=== PATIENT | female | born 1975 | race American Indian/Alaskan Native ===

== ENCOUNTER 2016-09-29 14:06 | Outpatient (CLI) | payer OTHER ==
--- NOTE | 2016-09-29 15:52 | Magnetic Resonance Report ---
MRI of the brain with and without contrast. History: Ataxia/multiple falls. Procedure: Routine brain protocol with and without contrast. Findings: The posterior fossa is normal. The ventricles are normal in size and contour. There are no masses or extra-axial collections. The la-white matter junction is normal. There is no restricted diffusion. The pituitary gland is normal. There is extensive abnormal signal occupying the entire right maxillary sinus with mucoperiosteal thickening/inflammation in the right ethmoid and bilateral frontal sinuses. There scattered areas of hyperintense T2 signal in the right mastoid air cells. After contrast administration, there are no abnormal areas of parenchymal enhancement. Impression: 1. No intracranial abnormalities. 2. Severe right maxillary sinusitis with additional sinusitis in the right ethmoid and bilateral frontal sinuses. There is evidence of mild right mastoiditis.
== END 2016-09-29 14:07 | disposition home or self-care (01) ==
LOC: MRI 14:06
PROVIDERS: ATTEND Internal Medicine
DX: J32.0 Chronic maxillary sinusitis (principal); H70.91 Unspecified mastoiditis, right ear; J32.2 Chronic ethmoidal sinusitis; J32.1 Chronic frontal sinusitis; Z91.81 History of falling
CPT/HCPCS: 70553; A9577

== ENCOUNTER 2016-11-10 13:27 | Outpatient (CLI) | payer OTHER ==
--- NOTE | 2016-11-10 15:16 | Ultrasound Report ---
ULTRASOUND RENAL BILATERAL HISTORY: Chronic renal disease. TECHNIQUE: transabdominal ultrasound with color Doppler interrogation. FINDINGS: The right kidney measures 10.5cm. Right renal cortex: 1.8cm. The left kidney measures 10.4cm. Left renal cortex: 1.5cm. The kidneys are normal size, contour and position. There is increased renal parenchymal echotexture bilaterally. Corticomedullary differentiation is preserved. No evidence for cystic disease, mass, hydronephrosis or perinephric fluid. The views of the bladder and the region of the ureters appear normal. IMPRESSION: Renal parenchymal disease.
== END 2016-11-10 13:28 | disposition home or self-care (01) ==
LOC: US 13:27
PROVIDERS: ATTEND Internal Medicine Nephrology
DX: N18.3 Chronic kidney disease, stage 3 (moderate) (principal)
CPT/HCPCS: 76770

== ENCOUNTER 2017-01-24 14:48 | Outpatient (CLI) | payer OTHER ==
[2017-01-24 15:54] LABS: Basophils % (Auto) 1.5 % (0.0-1.8); Eosinophils % (Auto) 2.1 % (0.0-4.3); Hematocrit 20.1 % (30.3-42.9); Hemoglobin 6.3 gm/dl (10.1-14.3); Mean Corpuscular HGB Conc 31 % (30-34); Mean Corpuscular Volume 76 fl (79-97); Platelet Count 252 K/mm3 (140-440); Red Blood Count 2.65 M/mm3 (3.65-5.03); Red Cell Distribution Width 16.8 % (13.2-15.2); White Blood Count 5.5 K/mm3 (4.5-11.0)
[2017-01-24 16:00] LABS: Mean Corpuscular Hemoglobin 24 pg (28-32)
== END 2017-01-24 14:49 | disposition home or self-care (01) ==
LOC: LAB 14:48
PROVIDERS: ATTEND Internal Medicine
DX: E11.65 Type 2 diabetes mellitus with hyperglycemia (principal)
CPT/HCPCS: 36415; 85025

== ENCOUNTER 2017-02-24 16:10 | Inpatient (IN) | payer OTHER ==
[2017-02-24 17:51] LABS: Basophils % (Auto) 1.4 % (0.0-1.8); Eosinophils % (Auto) 3.1 % (0.0-4.3); Hematocrit 21.7 % (30.3-42.9); Hemoglobin 6.9 gm/dl (10.1-14.3); Mean Corpuscular HGB Conc 32 % (30-34); Mean Corpuscular Volume 72 fl (79-97); Platelet Count 288 K/mm3 (140-440); Red Blood Count 3.01 M/mm3 (3.65-5.03); Red Cell Distribution Width 15.8 % (13.2-15.2); White Blood Count 6.5 K/mm3 (4.5-11.0)
[2017-02-24 17:52] LABS: Mean Corpuscular Hemoglobin 23 pg (28-32)
[2017-02-24 18:07] LABS: BUN/Creatinine Ratio 21.42; Calcium 8.8 mg/dL (8.4-10.2); Potassium 5.2 mmol/L (3.6-5.0)
[2017-02-24] MEDS ORDERED: NACL 0.9% 500 ML 500 ML IV ONE ×2 (23:12→23:36)
--- NOTE | 2017-02-24 23:36 | Emergency Department Report ---
- General Chief complaint: Recheck/Abnormal Lab/Rx Stated complaint: LOW HEMOGLOBIN Time Seen by Provider: 02/24/17 22:47 Source: patient Mode of arrival: Ambulatory Limitations: No Limitations - History of Present Illness Initial comments: 41-year-old female the past medical history diabetes, hypertension, anemia, autoimmune gastritis, chronic renal insufficiency, and B12 deficiency presents to the hospital complains of low hemoglobin. Patient was sent by Dr. Bailey her unix architect after abnormal CBC results. Hemoglobin 6.6 as outpatient today. Patient complains of ongoing fatigue and intermittent dizziness. No shortness of breath, vaginal bleeding, melena, hematochezia. Similar presentation one year ago requiring blood transfusion. Patient is not currently on iron or B12 pills. - Related Data Allergies Allergy/AdvReac Type Severity Reaction Status Date / Time No Known Allergies Allergy Unverified 09/29/16 14:06 ED Review of Systems ROS: Stated complaint: LOW HEMOGLOBIN Other details as noted in HPI Comment: All other systems reviewed and negative Other: Constitutional: No fevers chills Eyes: No eye pain visual changes ENT: No ear pain or throat pain Neck: Denies pain Respiratory: Denies cough wheezing shortness of breath Cardiovascular: Denies chest pain, palpitations GI: Denies abdominal pain, nausea, vomiting, diarrhea : Denies dysuria Musculoskeletal: Denies back pain Skin: Denies rash, lesions, erythema Neurologic: Denies headache, numbness Psychiatric: Denies suicidal ideation, hallucinations ED Past Medical Hx - Past Medical History Hx Hypertension: Yes Hx Diabetes: Yes Additional medical history: Anemia, auto immune gastritis - Surgical History Past Surgical History?: Yes Additional Surgical History: Thyroidectomy - Social History Smoking Status: Never Smoker Substance Use Type: None ED Physical Exam - General Limitations: No Limitations - Other Other exam information: General: No limitations, patient is alert in no acute distress Head exam: Atraumatic, normocephalic Eyes exam: Normal appearance, pupils equal reactive to light, extraocular movements intact ENT: Moist mucous membrane, normal oropharynx Neck exam: Normal inspection, full range of motion, no meningismus nontender Respiratory exam: Clear to auscultation bilateral, no wheezes, rales, crackles Cardiovascular: Normal rate and rhythm, normal heart sounds Abdomen: Soft, nondistended, and nontender, with normal bowel sounds, no rebound, or guarding Rectal: Guaiac-negative brown stool Extremity: Full range of motion normal inspection no deformity Back: Normal Inspection, full range of motion, no tenderness Neurologic: Alert, oriented x3, cranial nerves intact, no motor or sensory deficit Psychiatric: normal affect, normal mood Skin: Warm, dry, intact ED Course Vital Signs 02/24/17 02/24/17 02/24/17 16:41 22:27 22:30 Temperature 98.1 F Pulse Rate 82 77 77 Respiratory 16 15 10 L Rate Blood Pressure 99/65 162/66 O2 Sat by Pulse 100 Oximetry 02/24/17 22:43 Temperature Pulse Rate Respiratory 19 Rate Blood Pressure O2 Sat by Pulse Oximetry - Reevaluation(s) Reevaluation #1: 02/25/17 00:53 2 units PRBCs ordered and pending ED Medical Decision Making - Lab Data Result diagrams: 02/24/17 17:10 02/24/17 17:10 Lab Results 02/24/17 02/24/17 02/24/17 Range/Units 17:10 17:10 23:15 WBC 6.5 (4.5-11.0) K/mm3 RBC 3.01 L (3.65-5.03) M/mm3 Hgb 6.9 L (10.1-14.3) gm/dl Hct 21.7 L (30.3-42.9) % MCV 72 L (79-97) fl MCH 23 L (28-32) pg MCHC 32 (30-34) % RDW 15.8 H (13.2-15.2) % Plt Count 288 (140-440) K/mm3 Lymph % (Auto) 24.4 (13.4-35.0) % Hand % (Auto) 7.5 H (0.0-7.3) % Eos % (Auto) 3.1 (0.0-4.3) % Baso % (Auto) 1.4 (0.0-1.8) % Lymph # 1.6 (1.2-5.4) K/mm3 Hand # 0.5 (0.0-0.8) K/mm3 Eos # 0.2 (0.0-0.4) K/mm3 Baso # 0.1 (0.0-0.1) K/mm3 Seg Neutrophils % 63.6 (40.0-70.0) % Seg Neutrophils # 4.1 (1.8-7.7) K/mm3 Sodium 137 (137-145) mmol/L Potassium 5.2 H (3.6-5.0) mmol/L Chloride 100.0 (98-107) mmol/L Carbon Dioxide 22 (22-30) mmol/L Anion Gap 20 mmol/L BUN 30 H (7-17) mg/dL Creatinine 1.4 H (0.7-1.2) mg/dL Estimated GFR 50 ml/min BUN/Creatinine Ratio 21.42 % Glucose 257 H (65-100) mg/dL Calcium 8.8 (8.4-10.2) mg/dL Blood Type AB POSITIVE Antibody Screen Negative Crossmatch See Detail Urine pending - Medical Decision Making No signs of active bleeding at this time. Patient sent by PMD due to symptomatic anemia. 2 units of PRBCs ordered. Iron studies, folate, and B12 pending. - Differential Diagnosis iron deficiency, acute blood loss, chronic renal disease associated anemia Critical Care Time: No Critical care attestation.: If time is entered above; I have spent that time in minutes in the direct care of this critically ill patient, excluding procedure time. ED Disposition Clinical Impression: Symptomatic anemia, Autoimmune gastritis, Chronic renal insufficiency Disposition: OP ADMIT IP TO THIS HOSP Is pt being admited?: Yes Condition: Stable Time of Disposition: 23:36 (Dr landeros/hosp)
[2017-02-25] MEDS ORDERED: TYLENOL PO PRN (01:03)
[2017-02-25] MEDS ORDERED: DULCOLAX PR PRN (01:03)
[2017-02-25] MEDS ORDERED: MORPHINE IV PRN (01:03)
[2017-02-25] MEDS ORDERED: ZOFRAN IV PRN (01:03)
[2017-02-25] MEDS ORDERED: MILK OF MAGNESIA PO PRN (01:03)
--- NOTE | 2017-02-25 01:07 | History and Physical Report ---
History of Present Illness Date of examination: 02/25/17 Date of admission: Cerumen is present Chief complaint: Patient was asked to come in for blood sensation because hemoglobin was low History of present illness: Patient is 41-year-old with history of diabetes, hypertension, chronic kidney disease. She was sent in by division controller because outpatient labs showed low hemoglobin. She also complained of fatigue and dizziness. In ED, her hemoglobin was 6.9. PRBC transfusion has been ordered and she will be admitted to medical floor. She denies any chest pain or shortness of breath. Past History Past Medical History: diabetes, hypertension, renal failure Past Surgical History: thyroidectomy Social history: full code. denies: smoking, alcohol abuse Family history: diabetes, stroke Medications and Allergies Allergies Allergy/AdvReac Type Severity Reaction Status Date / Time No Known Allergies Allergy Unverified 09/29/16 14:06 Review of Systems All systems: negative (no fever, no headache, no cough, no vomiting. All other systems reviewed and are negative) Exam - Physical Exam Narrative exam: Gen appearance: Not in acute distress HEENT: Normocephalic atraumatic. Neck: Supple, no JVD, Lungs: clear to auscultation bilaterally, no crackles or wheezes Heart :S1 and S2 regular, no murmurs, rubs or gallop Abdomen: Soft, non tender, non distended, normal bowel sounds Extremities :no edema no clubbing or cyanosis Neuro: Awake, alert oriented 3, normal speech,no focal neurological signs - Constitutional Vitals: Temp Pulse Resp BP Pulse Ox 98.4 F 80 16 150/63 100 02/25/17 01:05 02/25/17 01:05 02/25/17 01:05 02/25/17 01:05 02/24/17 16:41 Results - Labs CBC & Chem 7: 02/24/17 17:10 02/24/17 17:10 Labs: Abnormal lab results 02/24/17 02/24/17 02/24/17 Range/Units 17:10 17:10 23:15 RBC 3.01 L (3.65-5.03) M/mm3 Hgb 6.9 L (10.1-14.3) gm/dl Hct 21.7 L (30.3-42.9) % MCV 72 L (79-97) fl MCH 23 L (28-32) pg RDW 15.8 H (13.2-15.2) % Rooks % (Auto) 7.5 H (0.0-7.3) % Potassium 5.2 H (3.6-5.0) mmol/L BUN 30 H (7-17) mg/dL Creatinine 1.4 H (0.7-1.2) mg/dL Glucose 257 H (65-100) mg/dL Crossmatch See Detail Assessment and Plan Symptomatic anemia. Admit to medical surgical floor. Hemoglobin 6.9. We'll transfuse 2 units PRBC. Get stool occult blood Chronic kidney disease. Cr 1.4. Consult her division controller, Dr. Bailey Hyperkalemia with potassium 5.2. Gave Kayexalate and recheck potassium Diabetes mellitus type 2. Fingerstick glucose before every meal and at bedtime Hypertension. BP uncontrolled. Start on amlodipine and hydralazine Full CODE STATUS
[2017-02-25] MEDS ORDERED: KIONEX PO ONE (01:09)
[2017-02-25 02:17] LABS: Total Iron Binding Capacity 467.6 mcg/dL (250-450)
[2017-02-25] MEDS ORDERED: APRESOLINE ONE (02:57)
[2017-02-25] MEDS ORDERED: APRESOLINE PO SCH (03:00)
[2017-02-25] MEDS: NORVASC PO SCH ×2 (03:06→09:36)
[2017-02-25] MEDS ORDERED: APRESOLINE PO ONE (04:42)
[2017-02-25] MEDS ORDERED: APRESOLINE IV ONE (04:51)
[2017-02-25] MEDS: APRESOLINE PO SCH ×2 (05:37→14:22)
[2017-02-25 07:19] LABS: Hematocrit 30.1 % (30.3-42.9); Hemoglobin 9.7 gm/dl (10.1-14.3); Mean Corpuscular HGB Conc 32 % (30-34); Mean Corpuscular Volume 79 fl (79-97); Platelet Count 238 K/mm3 (140-440); Red Blood Count 3.81 M/mm3 (3.65-5.03); White Blood Count 9.4 K/mm3 (4.5-11.0)
[2017-02-25 07:40] LABS: Anion Gap 18 mmol/L; BUN/Creatinine Ratio 25.45; Blood Urea Nitrogen 28 mg/dL (7-17); Calcium 8.6 mg/dL (8.4-10.2); Carbon Dioxide 21 mmol/L (22-30); Chloride 102.7 mmol/L (98-107); Glucose 285 mg/dL (65-100); Potassium 4.5 mmol/L (3.6-5.0); Sodium 137 mmol/L (137-145)
[2017-02-25 07:48] LABS: Mean Corpuscular Hemoglobin 26 pg (28-32); Red Cell Distribution Width 20.1 % (13.2-15.2)
--- NOTE | 2017-02-25 08:35 | Discharge Summary ---
Providers - Providers Date of Admission: 02/25/17 01:03 Date of discharge: 02/25/17 Attending physician: ARACELI SANDERSON Primary care physician: APPLICATION HELPER Hospitalization Reason for admission: anemia Condition: Stable Hospital course: Patient is 41-year-old with history of diabetes, hypertension, chronic kidney disease. She was sent in by french weaver because outpatient labs showed low hemoglobin. She also complained of fatigue and dizziness. In ED, her hemoglobin was 6.9. PRBC transfusion has been ordered and she was admitted to medical floor. She denied any chest pain or shortness of breath. Patient received 2 units of PRBCs. Patient showed no signs of active bleeding. Patient will follow-up with her french weaver and primary care physician as an outpatient. Etiology of anemia may be secondary to chronic kidney disease. Patient was also noted to have accelerated hypertension and treated with Norvasc and hydralazine. Patient has significant improvement in blood pressure. Patient will be discharged home with prescriptions. Dedicated discharge time 32 minutes. Disposition: DC-01 TO HOME OR SELFCARE Time spent for discharge: 32 - Discharge Diagnoses (1) Autoimmune gastritis Status: Acute Qualifiers: Gastritis bleeding: G (2) Chronic renal insufficiency Status: Acute Qualifiers: Chronic kidney disease stage: C (3) Symptomatic anemia Status: Acute (4) Accelerated hypertension Status: Acute Core Measure Documentation - Palliative Care Palliative Care/ Comfort Measures: Not Applicable - Core Measures Any of the following diagnoses?: none Exam - Constitutional Vitals: Temp Pulse Resp BP Pulse Ox 98.5 F 86 18 161/82 100 02/25/17 04:25 02/25/17 06:20 02/25/17 06:20 02/25/17 06:20 02/25/17 04:25 General appearance: Present: no acute distress, well-nourished - EENT Eyes: Present: PERRL ENT: hearing intact, clear oral mucosa - Neck Neck: Present: supple, normal ROM - Respiratory Respiratory effort: normal Respiratory: bilateral: CTA - Cardiovascular Heart Sounds: Present: S1 & S2. Absent: rub, click - Extremities Extremities: pulses symmetrical, No edema Peripheral Pulses: within normal limits - Abdominal General gastrointestinal: Present: soft, non-tender, non-distended, normal bowel sounds Female genitourinary: Present: normal - Integumentary Integumentary: Present: clear, warm, dry - Musculoskeletal Musculoskeletal: gait normal, strength equal bilaterally - Psychiatric Psychiatric: appropriate mood/affect, intact judgment & insight - Neurologic Neurologic: CNII-XII intact, moves all extremities Plan Activity: no restrictions Weight Bearing Status: Full Weight Bearing Diet: regular Follow up with: PRIMARY CARE, [Primary Care Provider] - 7 Days PROSPER WATSON MD [Staff Physician] - 7 Days Prescriptions: amLODIPine [Norvasc] 5 mg PO QDAY #30 tablet hydrALAZINE [Apresoline TAB] 50 mg PO Q8H #90 tablet
--- NOTE | 2017-02-25 13:47 | Consultation ---
History of Present Illness - Reason for Consult Consult date: 02/25/17 acute renal failure, chronic renal failure Requesting physician: GREGORY CLARKE - History of Present Illness This is 41 yo AAF with history of diabetes, hypertension, autoimmune gastritis, chronic iron deficiency anemia, chronic kidney disease stage 2, who is being followed by Dr Bailey, and was sent by him after recent blood work showed evidence of significant anemia with Hb <7. She also complained of fatigue and dizziness. In ED, her hemoglobin was 6.9. PRBC transfusion has been ordered and was admitted to medical floor. BUN/Cr was elevated at 30/1.4mg/dl, renal consult is requested for management of GAGAN on CKD. Pt denies fever, chills, nausea vomiting, BRBPR, melena, chest pain, shortness of breath, dysuria. denies recent NSAIDs use, or IV contrast exposure. Past History Past Medical History: diabetes, hypertension, renal failure Past Surgical History: thyroidectomy Social history: full code. denies: smoking, alcohol abuse Family history: diabetes, stroke Medications and Allergies Allergies Allergy/AdvReac Type Severity Reaction Status Date / Time No Known Allergies Allergy Unverified 09/29/16 14:06 Home Medications Medication Instructions Recorded Confirmed Last Taken Type amLODIPine [Norvasc] 5 mg PO QDAY #30 tablet 02/25/17 Unknown Rx hydrALAZINE [Apresoline TAB] 50 mg PO Q8H #90 tablet 02/25/17 Unknown Rx Active Meds: Active Medications Acetaminophen (Tylenol) 650 mg PO Q4H PRN PRN Reason: Pain MILD(1-3)/Fever >100.5/YEAGER Amlodipine Besylate (Norvasc) 5 mg PO QDAY [facility] Last Admin: 02/25/17 09:36 Dose: 5 mg Bisacodyl (Dulcolax) 10 mg FL QDAY PRN PRN Reason: Constipation unrelieved by MOM Heparin Sodium (Porcine) (Heparin) 5,000 unit SUB-Q Q8HR [facility] Hydralazine HCl (Apresoline) 50 mg PO Q8H [facility] Last Admin: 02/25/17 05:37 Dose: Not Given Magnesium Hydroxide (Milk Of Magnesia) 30 ml PO Q4H PRN PRN Reason: Constipation Morphine Sulfate (Morphine) 2 mg IV Q4H PRN PRN Reason: Pain, Moderate (4-6) Ondansetron HCl (Zofran) 4 mg IV Q6H PRN PRN Reason: nausea or vomiting Review of Systems Constitutional: fatigue, weakness Hematologic/Lymphatic: other (chronic anemia ) Exam - Vital Signs Vital signs: Vital Signs Temp Pulse Resp BP Pulse Ox 98.1 F 82 16 99/65 100 02/24/17 16:41 02/24/17 16:41 02/24/17 16:41 02/24/17 16:41 02/24/17 16:41 - General Appearance General appearance: well-nourished, appears stated age EENT: ATNC, PERRL, mucous membranes moist Neck: Present: neck supple Respiratory: Clear to Ascultation Heart: regular, S1S2 Gastrointestinal: Present: normoactive bowel sounds Integumentary: no rash, other (no edema ) Neurologic: no focal deficit, alert and oriented x3, strength 5/5, CN 3-12 intact Psychiatric: mood/affect appropriate, cooperative Results - Lab Results 02/25/17 07:04 02/25/17 07:04 Most recent lab results Calcium 8.6 mg/dL (8.4-10.2) 02/25/17 07:04 Laboratory Tests 02/24/17 02/24/17 02/24/17 23:33 23:33 23:33 Iron 17 L TIBC 467.60 H % Saturation 3.64 Transferrin 334 Vitamin B12 733.3 Folate 14.43 Assessment and Plan - Patient Problems (1) Symptomatic anemia Current Visit: Yes Status: Acute Plan to address problem: Hb improved to 9.7. after 2PRBC transfusion. (2) Acute kidney injury Current Visit: Yes Status: Acute Plan to address problem: likely due to pre-renal azotemia in the setting of acute symptomatic anemia. Renal function improved promptly to baseline after blood transfusion. Stable for discharge from renal stand point cont supportive care for GAGAN/CKD avoid nephrotoxins, NSAIDs, IV contrast (3) Hypertensive chronic kidney disease with stage 1 through stage 4 chronic kidney disease, or unspecified chronic kidney disease Current Visit: Yes Status: Acute Plan to address problem: resume home BP regimen. Will monitor BP and adjust meds accordingly (4) Chronic kidney disease, stage III (moderate) Current Visit: Yes Status: Acute Plan to address problem: renal function back to baseline, f/u with Dr Bailey in 1-2 weeks (5) Autoimmune gastritis Current Visit: Yes Status: Acute Qualifiers: Gastritis bleeding: G Plan to address problem: f/u with GI/hematology
[2017-02-25] MEDS ORDERED: HEPARIN SUB-Q SCH (14:00)
[2017-02-25 14:22] VITALS: BP 172/80
== END 2017-02-25 14:45 | disposition home or self-care (01) | DRG 683 ==
LOC: ED 16:10 → 3A 02-25 01:03
PROVIDERS: ADMIT Internal Medicine; ATTEND Hospitalist
PROC: 30233N1 Transfusion of Nonautologous Red Blood Cells into Peripheral Vein, Percutaneous Approach (ICD-10-PCS; principal; 2017-02-25)
DX: I12.9 Hypertensive chronic kidney disease with stage 1 through stage 4 chronic kidney disease, or unspecified chronic kidney disease (principal); N17.9 Acute kidney failure, unspecified; N18.3 Chronic kidney disease, stage 3 (moderate); E11.9 Type 2 diabetes mellitus without complications; E53.8 Deficiency of other specified B group vitamins; E89.0 Postprocedural hypothyroidism; E87.5 Hyperkalemia; K29.60 Other gastritis without bleeding; D63.1 Anemia in chronic kidney disease; Z83.3 Family history of diabetes mellitus; Z82.3 Family history of stroke
CPT/HCPCS: 36415; 80048; 81025; 82271; 82607; 82747; 83550; 85025; 85027; 86850; 86900; 86901; 86920; 96360; 96361; J0360; J7040; P9016

== ENCOUNTER 2018-03-02 10:15 | Outpatient (CLI) | payer BC ==
[2018-03-02] MEDS ORDERED: XYLOCAINE TOPICAL 4% TP ONE ×2 (11:03→12:02)
== END 2018-03-02 10:16 | disposition home or self-care (01) ==
LOC: WOUND 10:15
PROVIDERS: ATTEND Surgery
DX: T87.89 Other complications of amputation stump (principal); E11.621 Type 2 diabetes mellitus with foot ulcer; L97.514 Non-pressure chronic ulcer of other part of right foot with necrosis of bone; I10 Essential (primary) hypertension; Y83.5 Amputation of limb(s) as the cause of abnormal reaction of the patient, or of later complication, without mention of misadventure at the time of the procedure
CPT/HCPCS: 99215; G0463

== ENCOUNTER 2018-03-09 08:16 | Outpatient (CLI) | payer BC ==
[2018-03-09] MEDS ORDERED: XYLOCAINE TOPICAL 4% TP ONE ×2 (08:24→09:03)
== END 2018-03-09 08:17 | disposition home or self-care (01) ==
LOC: WOUND 08:16
PROVIDERS: ATTEND Surgery
DX: T87.89 Other complications of amputation stump (principal); E11.621 Type 2 diabetes mellitus with foot ulcer; L97.514 Non-pressure chronic ulcer of other part of right foot with necrosis of bone; L97.521 Non-pressure chronic ulcer of other part of left foot limited to breakdown of skin; I10 Essential (primary) hypertension; Y83.5 Amputation of limb(s) as the cause of abnormal reaction of the patient, or of later complication, without mention of misadventure at the time of the procedure
CPT/HCPCS: 99213; 99214; G0463

== ENCOUNTER 2018-03-13 10:18 | Outpatient (CLI) | payer BC ==
[2018-03-13] MEDS ORDERED: DAKIN'S FULL STRENGTH ONE (11:50)
[2018-03-13] MEDS ORDERED: DAKIN'S FULL STRENGTH TP ONE (15:35)
== END 2018-03-13 10:19 | disposition home or self-care (01) ==
LOC: WOUND 10:18
PROVIDERS: ATTEND Surgery
DX: T87.89 Other complications of amputation stump (principal); E11.621 Type 2 diabetes mellitus with foot ulcer; L97.414 Non-pressure chronic ulcer of right heel and midfoot with necrosis of bone; L97.514 Non-pressure chronic ulcer of other part of right foot with necrosis of bone; L97.521 Non-pressure chronic ulcer of other part of left foot limited to breakdown of skin; E11.69 Type 2 diabetes mellitus with other specified complication; M86.671 Other chronic osteomyelitis, right ankle and foot; I10 Essential (primary) hypertension; Y83.5 Amputation of limb(s) as the cause of abnormal reaction of the patient, or of later complication, without mention of misadventure at the time of the procedure

== ENCOUNTER 2018-03-20 10:10 | Outpatient (CLI) | payer BC ==
[2018-03-20 10:58] LABS: Hematocrit 24.2 % (30.3-42.9); Hemoglobin 7.2 gm/dl (10.1-14.3); Mean Corpuscular HGB Conc 30 % (30-34); Mean Corpuscular Hemoglobin 27 pg (28-32); Mean Corpuscular Volume 90 fl (79-97); Platelet Count 474 K/mm3 (140-440); Red Blood Count 2.69 M/mm3 (3.65-5.03); Red Cell Distribution Width 15.6 % (13.2-15.2)
--- NOTE | 2018-03-20 11:07 | XRay Report ---
ROUTINE CHEST, TWO VIEWS: HISTORY: Preoperative evaluation. The trachea, heart, mediastinal contour, lung barton and bony thorax are unremarkable. IMPRESSION: Unremarkable chest x-ray.
[2018-03-20 11:14] LABS: Albumin 1.9 g/dL (3.9-5); Calcium 8.5 mg/dL (8.4-10.2)
[2018-03-20 13:37] LABS: Basophils % (Manual) 0 % (0.0-1.8); Eosinophils % (Manual) 0 % (0.0-4.3); Total Cells Counted 100
[2018-03-20 13:38] LABS: Anisocytosis Few; Crenated RBC Few; Platelet Estimate Consistent w Auto; Poikilocytosis Few
== END 2018-03-20 10:11 | disposition home or self-care (01) ==
LOC: LAB 10:10
PROVIDERS: ATTEND Surgery
DX: E61.1 Iron deficiency (principal); I12.9 Hypertensive chronic kidney disease with stage 1 through stage 4 chronic kidney disease, or unspecified chronic kidney disease; N18.3 Chronic kidney disease, stage 3 (moderate)
CPT/HCPCS: 36415; 71046; 80053; 85007; 85025

== ENCOUNTER 2018-03-28 08:35 | Outpatient (CLI) | payer BC ==
[2018-03-28] MEDS ORDERED: XYLOCAINE TOPICAL 4% TP ONE (08:47)
[2018-03-28] MEDS ORDERED: SILVER NITRATE TP ONE (09:15)
[2018-03-28] MEDS ORDERED: DAKIN'S FULL STRENGTH TP ONE (09:16)
== END 2018-03-28 08:36 | disposition home or self-care (01) ==
LOC: WOUND 08:35
PROVIDERS: ATTEND Surgery
DX: T87.89 Other complications of amputation stump (principal); E11.621 Type 2 diabetes mellitus with foot ulcer; L97.414 Non-pressure chronic ulcer of right heel and midfoot with necrosis of bone; L97.521 Non-pressure chronic ulcer of other part of left foot limited to breakdown of skin; E11.69 Type 2 diabetes mellitus with other specified complication; M86.671 Other chronic osteomyelitis, right ankle and foot; I10 Essential (primary) hypertension; Y83.5 Amputation of limb(s) as the cause of abnormal reaction of the patient, or of later complication, without mention of misadventure at the time of the procedure